=== PATIENT | female | born 1970 | race Caucasian/White ===

== ENCOUNTER 2023-11-14 07:23 | Emergency (ER) | payer MEDICAID ==
[~2023-11-14] VITALS: Ht 162.6 cm; Wt 55.9 kg
[2023-11-14] MEDS: ondansetron 4mg rapidly disintigrating tab PO ONE (08:42)
[2023-11-14] MEDS: oxyCODONE/APAP 10/325mg tablet PO ONE (08:43)
[2023-11-14 09:00] LABS: BILIRUBIN,URINE NEGATIVE (Neg); CLARITY,URINE CLOUDY (Clear); COLOR,URINE YELLOW (Yellow); GLUCOSE, URINE >=1000 mg/dl (Neg); KETONES,URINE NEGATIVE (Neg); LEUKOCYTE ESTERASE ,URINE NEGATIVE (Neg); NITRITES, URINE NEGATIVE (Neg); OCCULT BLOOD,URINE TRACE-INTACT (Neg); PROTEIN,URINE NEGATIVE (Neg); UA COLLECTION TYPE CLN CATCH MIDSTREAM; UROBILINOGEN,URINE 0.2 E.U/dL (0.2-1.0)
[2023-11-14 09:04] LABS: BACTERIA,URINE FEW /HPF (Neg); MUCUS STRANDS NONE SEEN /LPF (Neg); RBC,URINE 0-2 /HPF (0-2); SQUAMOUS EPITHELIAL CELL,UR MANY /LPF (FEW); TRANSITIONAL EPI CELLS,URINE FEW /HPF; WBC,URINE 0-4 /HPF (0-4); YEAST FEW /HPF (NEGATIVE)
[2023-11-14 09:14] LABS: BASOPHILS % (AUTO) 0.4 % (0-1); EOSINOPHILS % (AUTO) 0.4 % (0-6); HEMATOCRIT 34.4 % (35.0-45.0); HEMOGLOBIN 11.5 g/dl (12.0-16.0); LYMPHOCYTES # (AUTO) 0.9 X10'3 (1.1-4.8); LYMPHOCYTES % (AUTO) 8.7 % (21-51); MEAN CORPUSCULAR HEMOGLOBIN 29.8 PG (27.0-31.0); MEAN CORPUSCULAR HGB CONC 33.3 g/dL (33.0-36.5); MEAN CORPUSCULAR VOLUME 89.4 FL (78-98); MEAN PLATELET VOLUME 7.2 FL (7.4-10.4); MONOCYTES # (AUTO) 0.4 X10'3 (0-0.9); MONOCYTES % (AUTO) 4.4 % (2-12); NEUTROPHILS # (AUTO) 8.8 X10'3 (1.8-7.7); NEUTROPHILS % (AUTO) 86.1 % (42-75); PLATELET COUNT 273 X10'3 (140-440); RED BLOOD COUNT 3.85 X10'6 (4.20-5.60); RED CELL DISTRIBUTION WIDTH 13.3 % (11.5-14.5); WHITE BLOOD COUNT 10.2 X10'3 (4.5-11.0)
[2023-11-14 09:27] LABS: ALANINE AMINOTRANSFERASE 43 U/L (12-78); ALBUMIN 2.1 G/DL (3.4-5.0); ALBUMIN/GLOBULIN RATIO 0.5 (1.1-1.5); ALKALINE PHOSPHATASE 342 IU/L (46-116); ANION GAP 6 (8-16); ASPARTATE AMINO TRANSFERASE 23 U/L (10-37); BILIRUBIN,TOTAL 0.5 MG/DL (0.1-1.0); BLOOD UREA NITROGEN 18 MG/DL (7-18); CALCIUM 8.1 MG/DL (8.5-10.1); CHLORIDE 95 MMOL/L (99-107); CREATININE 0.82 MG/DL (0.40-0.90); POTASSIUM 3.7 MMOL/L (3.5-5.1); SODIUM 130 MMOL/L (135-145); TOTAL CARBON DIOXIDE 29.2 MMOL/L (24-32); TOTAL PROTEIN 6.1 G/DL (6.4-8.2); eCRCL 67 ML/MIN; eGFR 72 ML/MIN
[2023-11-14 09:33] LABS: GLUCOSE 463 MG/DL (70-104)
[2023-11-14] MEDS ORDERED: potassium Cl 40MEQ/1/2NS 520ml 520 ML IV PRN ×2 (09:45→12:50)
[2023-11-14] MEDS ORDERED: sodium phosphate inj. 15 MMOL in dextrose 5%-water 250 ML IV PRN (09:45)
[2023-11-14] MEDS ORDERED: Neutra Phos packet PO PRN (09:45)
[2023-11-14] MEDS ORDERED: sodium bicarbonate (8.4%) inj. 100 MEQ in dextrose 5% water 500ml 500 ML IV PRN (09:45)
[2023-11-14] MEDS ORDERED: potassium CL 20mEq in D5-1/2NS 1,000 ML IV PRN (09:45)
[2023-11-14] MEDS: Insulin Reg/NS 100units/100mL 100 ML IV SCH (09:45)
[2023-11-14] MEDS ORDERED: potassium Cl 20 mEq SR tablet PO PRN ×4 (09:45→12:50)
[2023-11-14] MEDS ORDERED: sodium bicarbonate (8.4%) inj. 50 MEQ in dextrose 5% water 500ml 250 ML IV PRN (09:45)
[2023-11-14] MEDS ORDERED: dextrose 50%-water 50ml dispensing syringe IV PRN (09:45)
[2023-11-14] MEDS ORDERED: sodium phosphate inj. 30 MMOL in dextrose 5%-water 250 ML IV PRN (09:45)
[2023-11-14] MEDS: normal saline 1000ml 1,000 ML IV SCH ×2 (09:59→12:05)
[2023-11-14] MEDS: CefTRIAXone 2gm/D5W 50ml BAG 50 ML IV ONE (10:20)
[2023-11-14] MEDS: insulin regular, human U-100 3ml vial - multi-dose IV PRN (10:24)
[2023-11-14] MEDS: HYDROmorphone 1 mg/ml syringe IV ONE ×2 (10:38→18:16)
[2023-11-14 10:43] LABS: ABG BASE EXCESS 2.8 mmol/L (-2.0-3.0); ABG HCO3 25.2 mmol/L (21.0-28.0); ABG PCO2 (T) 32.5 mmHg (32.0-45.0); ABG PH (T) 7.508 (7.350-7.450); ABG PO2 (T) 98.6 mmHg (83.0-108.0); ALLEN'S TEST POSITIVE; MODE ROOM AIR
[2023-11-14] MEDS ORDERED: iohexol 300mg/ml 100ml inj. ONE (10:45)
[2023-11-14 10:47] LABS: PHOSPHORUS 2.9 MG/DL (2.3-4.5)
[2023-11-14] MEDS: normal saline 1000ml 1,000 ML IV ONE ×2 (12:05→20:55)
[2023-11-14] MEDS: clindamycin 600mg/D5W 50ml 50 ML IV ONE (12:05)
[2023-11-14] MEDS ORDERED: acetaminophen 325mg tablet PO PRN (12:50)
[2023-11-14] MEDS ORDERED: HYDROmorphone/PF 0.2 MG/ML SYRINGE IV PRN (12:50)
[2023-11-14] MEDS ORDERED: ondansetron/PF 4mg/2ml inj IV PRN (12:50)
[2023-11-14] MEDS ORDERED: magnesium sulf-water 2g/50mL 50 ML IV PRN (12:50)
[2023-11-14] MEDS ORDERED: mag hydrox/Alum hydrox/simeth 30ml oral suspension PO PRN (12:50)
[2023-11-14] MEDS ORDERED: magnesium hydroxide 30ml (MOM) UD suspension PO PRN (12:50)
[2023-11-14] MEDS ORDERED: magnesium Cl slow-release 64mg tablet PO PRN (12:50)
[2023-11-14] MEDS ORDERED: magnesium sulf-water 4G/100mL 100 ML IV PRN (12:50)
[2023-11-14] MEDS ORDERED: morphine 2 MG/ML inj. syringe IV PRN ×2 (12:50)
[2023-11-14] MEDS ORDERED: LOSA-415 PO (14:06)
[2023-11-14] MEDS ORDERED: GABA-530 PO ×2 (14:06)
[2023-11-14] MEDS ORDERED: METO-395 PO (14:06)
[2023-11-14] MEDS ORDERED: BUPR-344 PO (14:06)
[2023-11-14] MEDS ORDERED: CLOP75TA34 PO (14:06)
[2023-11-14] MEDS ORDERED: FURO40TA4 PO (14:06)
[2023-11-14] MEDS ORDERED: SPIR25TA5 PO (14:06)
[2023-11-14] MEDS ORDERED: ASPI-611 PO (14:06)
[2023-11-14] MEDS ORDERED: CHOL100024 PO (14:06)
[2023-11-14] MEDS: vancomycin/NS 1 GM ADD-VANTAGE 250 ML IV SCH (15:08)
[2023-11-14] MEDS ORDERED: metroNIDAZOLE-Flagyl 500mg/NS 100 ML IV SCH (16:00)
[2023-11-14 17:37] LABS: URINE AMPHETAMINE SCREEN POSITIVE (Neg); URINE BARBITUATE SCREEN NEGATIVE (Neg); URINE BENZODIAZEPINES SCREEN NEGATIVE (Neg); URINE CANNABINOID SCREEN NEGATIVE (Neg); URINE COCAINE SCREEN NEGATIVE (Neg); URINE METHADONE SCREEN NEGATIVE (Neg); URINE OPIATE SCREEN NEGATIVE (Neg); URINE PHENCYCLIDINE SCREEN NEGATIVE (Neg)
[2023-11-14] MEDS ORDERED: enoxaparin 40mg/0.4ml syringe SQ SCH (20:00)
[2023-11-14] MEDS: K and/or MAG REPLACEMENT MC SCH ×2 (20:00)
[2023-11-14] MEDS ORDERED: docusate sod 100mg capsule PO SCH (20:00)
[2023-11-14] MEDS: HYDROmorphone 1 mg/ml syringe IV PRN (20:54)
[2023-11-14] MEDS: insulin regular, human 10 units/0.1 ml syringe SQ STA (21:01)
[2023-11-14 21:41] LABS: BASOPHILS % (AUTO) 0.2 % (0-1); EOSINOPHILS # (AUTO) 0.1 X10'3 (0-0.9); EOSINOPHILS % (AUTO) 0.5 % (0-6); HEMATOCRIT 31.1 % (35.0-45.0); HEMOGLOBIN 10.3 g/dl (12.0-16.0); LYMPHOCYTES # (AUTO) 0.9 X10'3 (1.1-4.8); LYMPHOCYTES % (AUTO) 7.3 % (21-51); MEAN CORPUSCULAR HGB CONC 33.1 g/dL (33.0-36.5); MEAN CORPUSCULAR VOLUME 90.7 FL (78-98); MEAN PLATELET VOLUME 6.9 FL (7.4-10.4); MONOCYTES # (AUTO) 0.4 X10'3 (0-0.9); MONOCYTES % (AUTO) 3.3 % (2-12); NEUTROPHILS # (AUTO) 10.7 X10'3 (1.8-7.7); NEUTROPHILS % (AUTO) 88.7 % (42-75); PLATELET COUNT 280 X10'3 (140-440); RED BLOOD COUNT 3.43 X10'6 (4.20-5.60); RED CELL DISTRIBUTION WIDTH 13.8 % (11.5-14.5); WHITE BLOOD COUNT 12.1 X10'3 (4.5-11.0)
[2023-11-14 21:48] LABS: ALBUMIN 1.8 G/DL (3.4-5.0); ANION GAP 5 (8-16); BLOOD UREA NITROGEN 9 MG/DL (7-18); BUN/CREATININE RATIO 15.3 (10.0-20.0); CALCIUM 7.5 MG/DL (8.5-10.1); CHLORIDE 106 MMOL/L (99-107); CREATININE 0.59 MG/DL (0.40-0.90); GLUCOSE 279 MG/DL (70-104); SODIUM 136 MMOL/L (135-145); TOTAL CARBON DIOXIDE 24.7 MMOL/L (24-32); eCRCL 93 ML/MIN; eGFR > 90 ML/MIN
[2023-11-14 23:22] LABS: PRO BRAIN NATRIURETIC PEPTIDE 4859 PG/ML (0-125)
[2023-11-15] MEDS: nicotine 7mg patch - 24hr TD STA (01:40)
[2023-11-15] MEDS: QUEtiapine 25mg tablet PO SCH (02:46)
[2023-11-15] MEDS: diphenhydrAMINE 50 mg/ml inj IV STA (03:29)
[2023-11-15 03:36] VITALS: TEMP 98.2
[2023-11-15] MEDS ORDERED: CefTRIAXone 2gm/D5W 50ml BAG 50 ML IV SCH (08:00)
[2023-11-15] MEDS ORDERED: dextrose 50%-water 50ml dispensing syringe IV PRN ×2 (12:20)
[2023-11-15] MEDS ORDERED: glucagon, human recombinant 1mg kit SUBCUT PRN (12:20)
[2023-11-15] MEDS ORDERED: DEXTROSE 15 GM of carb/4 tabs (each vial/BOTTLE has 4 tablets) PO PRN ×2 (12:20)
[2023-11-15 13:24] LABS: CHLAMYDIA TRACHOMATIS, NAA Negative (Negative)
[2023-11-15 13:25] LABS: HEMOGLOBIN A1C 11.5 % (4.5-6.2)
[2023-11-15] MEDS ORDERED: CLINDAMYCIN 600mg IN NS 50ML 50 ML IV SCH (14:00)
[2023-11-15] MEDS: INSULIN LISPRO 100 UNIT/ML INSULN.PEN MULTI-DOSE SQ SCH (17:20)
[2023-11-15 17:23] VITALS: BP 130/70; PULSE 96; O2SAT 95
[2023-11-15] MEDS: CefTRIAXone 2gm/D5W 50ml BAG 50 ML IV ONE (18:46)
[2023-11-15] MEDS: clindamycin 600mg/D5W 50ml 50 ML IV SCH (20:26)
[2023-11-15 20:57] VITALS: RESP 22
[2023-11-16] MEDS ORDERED: VANCOMYCIN LEVEL IV ONE (01:30)
== END 2023-11-16 02:19 | disposition short-term general hospital (02) ==
LOC: ER 07:24 → UNDOADMIN 12:58 → ED HOLD 12:58 → UNDODISIN 11-16 01:00
DX: N76.2 Acute vulvitis (principal); F17.200 Nicotine dependence, unspecified, uncomplicated; Z88.8 Allergy status to other drugs, medicaments and biological substances; Z79.82 Long term (current) use of aspirin; Z79.899 Other long term (current) drug therapy
CPT/HCPCS: 36415; 36600; 71045; 74177; 80048; 80053; 80305; 81001; 82803; 82948; 83036; 83605; 83880; 84100; 84145; 85025; 87040; 87088; 87491; 87591; 93005; 93306; 96365; 96366; 96367; 96372; 96375; 96376; 99285; J0696; J1170; J1200; J1815; J3370; J3490; J7030; J7042; Q9967; A6258; G0378

== ENCOUNTER 2023-12-03 12:57 | Emergency (ER) | payer MEDICAID ==
[~2023-12-03] VITALS: Ht 165.1 cm; Wt 55.9 kg
[~2023-12-03 12:57] MED LIST: ASPI-611 PO; BUPR-344 PO; CHOL100024 PO; CLOP75TA34 PO; FURO40TA4 PO; GABA-530 PO; LOSA-415 PO; METO-395 PO; SPIR25TA5 PO
[2023-12-03 14:34] LABS: BASOPHILS # (AUTO) 0.1 X10'3 (0-0.2); BASOPHILS % (AUTO) 0.9 % (0-1); EOSINOPHILS # (AUTO) 0.2 X10'3 (0-0.9); EOSINOPHILS % (AUTO) 3.4 % (0-6); HEMATOCRIT 32.5 % (35.0-45.0); LYMPHOCYTES # (AUTO) 1.6 X10'3 (1.1-4.8); LYMPHOCYTES % (AUTO) 25.2 % (21-51); MEAN CORPUSCULAR HEMOGLOBIN 30.9 PG (27.0-31.0); MEAN CORPUSCULAR HGB CONC 33.9 g/dL (33.0-36.5); MEAN CORPUSCULAR VOLUME 91.2 FL (78-98); MEAN PLATELET VOLUME 7.1 FL (7.4-10.4); MONOCYTES # (AUTO) 0.7 X10'3 (0-0.9); MONOCYTES % (AUTO) 10.5 % (2-12); NEUTROPHILS # (AUTO) 3.7 X10'3 (1.8-7.7); PLATELET COUNT 338 X10'3 (140-440); RED BLOOD COUNT 3.56 X10'6 (4.20-5.60); RED CELL DISTRIBUTION WIDTH 14.7 % (11.5-14.5); WHITE BLOOD COUNT 6.2 X10'3 (4.5-11.0)
[2023-12-03 14:43] LABS: ALANINE AMINOTRANSFERASE 22 U/L (12-78); ALBUMIN 2.9 G/DL (3.4-5.0); ALBUMIN/GLOBULIN RATIO 0.7 (1.1-1.5); ALKALINE PHOSPHATASE 157 IU/L (46-116); ANION GAP 12 (8-16); ASPARTATE AMINO TRANSFERASE 16 U/L (10-37); BILIRUBIN,TOTAL 0.2 MG/DL (0.1-1.0); BLOOD UREA NITROGEN 39 MG/DL (7-18); BUN/CREATININE RATIO 29.8 (10.0-20.0); CALCIUM 9.2 MG/DL (8.5-10.1); CHLORIDE 108 MMOL/L (99-107); CREATININE 1.31 MG/DL (0.40-0.90); GLUCOSE 115 MG/DL (70-104); LIPASE 30 U/L (16-77); POTASSIUM 4.8 MMOL/L (3.5-5.1); SODIUM 139 MMOL/L (135-145); TOTAL CARBON DIOXIDE 19.1 MMOL/L (24-32); TOTAL PROTEIN 6.9 G/DL (6.4-8.2); eGFR 42 ML/MIN
[2023-12-03] MEDS ORDERED: iohexol 300mg/ml 100ml inj. ONE (14:50)
[2023-12-03] MEDS: normal saline 1000ml 1,000 ML IV ONE ×2 (16:25→17:20)
[2023-12-03] MEDS: ondansetron/PF 4mg/2ml inj IV ONE (16:32)
[2023-12-03] MEDS: HYDROmorphone 1 mg/ml syringe IV ONE (16:35)
[2023-12-03 16:38] LABS: BILIRUBIN,URINE NEGATIVE (Neg); CLARITY,URINE CLEAR (Clear); COLOR,URINE YELLOW (Yellow); GLUCOSE, URINE 250 mg/dl (Neg); KETONES,URINE NEGATIVE (Neg); LEUKOCYTE ESTERASE ,URINE NEGATIVE (Neg); NITRITES, URINE NEGATIVE (Neg); OCCULT BLOOD,URINE NEGATIVE (Neg); PROTEIN,URINE NEGATIVE (Neg); UROBILINOGEN,URINE 0.2 E.U/dL (0.2-1.0)
[2023-12-03 16:41] LABS: UA COLLECTION TYPE CLN CATCH MIDSTREAM
[2023-12-03 18:47] VITALS: BP 128/70; PULSE 87; RESP 15; TEMP 98.4; O2SAT 98
== END 2023-12-03 18:59 ==
LOC: ER 12:58
DX: N76.2 Acute vulvitis (principal); Z88.8 Allergy status to other drugs, medicaments and biological substances; Z79.82 Long term (current) use of aspirin; Z79.899 Other long term (current) drug therapy
CPT/HCPCS: 36415; 74177; 80053; 81003; 83605; 83690; 85025; 93005; 96361; 96374; 96375; 99285; J1170; J2405; J7030; Q9967

== ENCOUNTER 2023-12-31 15:35 | Emergency (ER) | payer MEDICAID ==
[~2023-12-31] VITALS: Ht 162.6 cm; Wt 61.8 kg
[2023-12-31 16:13] LABS: BASOPHILS # (AUTO) 0.1 X10'3 (0-0.2); BASOPHILS % (AUTO) 1.1 % (0-1); EOSINOPHILS # (AUTO) 0.2 X10'3 (0-0.9); EOSINOPHILS % (AUTO) 4.2 % (0-6); HEMATOCRIT 33.3 % (35.0-45.0); HEMOGLOBIN 11.3 g/dl (12.0-16.0); LYMPHOCYTES # (AUTO) 1.5 X10'3 (1.1-4.8); LYMPHOCYTES % (AUTO) 24.5 % (21-51); MEAN CORPUSCULAR HEMOGLOBIN 30.5 PG (27.0-31.0); MEAN CORPUSCULAR HGB CONC 33.9 g/dL (33.0-36.5); MEAN CORPUSCULAR VOLUME 89.9 FL (78-98); MEAN PLATELET VOLUME 7.3 FL (7.4-10.4); MONOCYTES # (AUTO) 0.5 X10'3 (0-0.9); MONOCYTES % (AUTO) 9.1 % (2-12); NEUTROPHILS # (AUTO) 3.6 X10'3 (1.8-7.7); NEUTROPHILS % (AUTO) 61.1 % (42-75); PLATELET COUNT 274 X10'3 (140-440); RED CELL DISTRIBUTION WIDTH 14.3 % (11.5-14.5)
[2023-12-31 16:25] LABS: ANION GAP 8 (8-16); BLOOD UREA NITROGEN 19 MG/DL (7-18); BUN/CREATININE RATIO 24.4 (10.0-20.0); CHLORIDE 102 MMOL/L (99-107); CREATININE 0.78 MG/DL (0.40-0.90); GLUCOSE 180 MG/DL (70-104); SODIUM 136 MMOL/L (135-145); TOTAL CARBON DIOXIDE 25.7 MMOL/L (24-32)
[2023-12-31 16:26] LABS: ALANINE AMINOTRANSFERASE 20 U/L (12-78); ALBUMIN/GLOBULIN RATIO 0.7 (1.1-1.5); ALKALINE PHOSPHATASE 124 IU/L (46-116); ASPARTATE AMINO TRANSFERASE 19 U/L (10-37); BILIRUBIN,TOTAL 0.5 MG/DL (0.1-1.0); CALCIUM 9.4 MG/DL (8.5-10.1); LIPASE 13 U/L (16-77); TOTAL PROTEIN 7.1 G/DL (6.4-8.2); eCRCL 70 ML/MIN; eGFR 77 ML/MIN
[2023-12-31 16:35] LABS: POTASSIUM 4.3 MMOL/L (3.5-5.1)
[2023-12-31] MEDS ORDERED: morphine 4 MG/ML inj SYRINge IV ONE (17:55)
[2023-12-31] MEDS ORDERED: iohexol 300mg/ml 100ml inj. ONE (18:07)
[2023-12-31 18:11] LABS: BILIRUBIN,URINE NEGATIVE (Neg); CLARITY,URINE CLEAR (Clear); COLOR,URINE YELLOW (Yellow); GLUCOSE, URINE NEGATIVE (Neg); KETONES,URINE NEGATIVE (Neg); LEUKOCYTE ESTERASE ,URINE NEGATIVE (Neg); NITRITES, URINE NEGATIVE (Neg); OCCULT BLOOD,URINE NEGATIVE (Neg); PROTEIN,URINE NEGATIVE (Neg); UROBILINOGEN,URINE 0.2 E.U/dL (0.2-1.0)
[2023-12-31 18:12] LABS: URINE HCG NEGATIVE (NEG)
[2023-12-31] MEDS: HYDROmorphone 1 mg/ml syringe IV STA (18:15)
[2023-12-31] MEDS: ketorolac trometh 15mg/ml vial 15 MG/ML ML IV STA (18:15)
[2023-12-31 18:20] LABS: UA COLLECTION TYPE CLN CATCH MIDSTREAM
[2023-12-31 20:28] VITALS: BP 146/77; PULSE 86; RESP 16; TEMP 98.2; O2SAT 96
== END 2023-12-31 20:33 | disposition home or self-care (01) ==
LOC: ER 15:35
DX: R10.13 Epigastric pain (principal); Z88.8 Allergy status to other drugs, medicaments and biological substances; Z79.899 Other long term (current) drug therapy; Z79.1 Long term (current) use of non-steroidal anti-inflammatories (NSAID)
CPT/HCPCS: 36415; 74177; 80053; 81003; 81025; 83605; 83690; 85025; 96374; 96375; 99285; J1171; J1885; Q9967

== ENCOUNTER 2024-01-08 19:52 | Emergency (ER) | payer MEDICAID ==
[~2024-01-08] VITALS: Ht 165.1 cm; Wt 72.7 kg
[2024-01-08 19:59] VITALS: TEMP 99.1
[2024-01-08 20:38] LABS: BASOPHILS % (AUTO) 0.4 % (0-1); EOSINOPHILS # (AUTO) 0.2 X10'3 (0-0.9); EOSINOPHILS % (AUTO) 1.9 % (0-6); HEMATOCRIT 37.5 % (35.0-45.0); HEMOGLOBIN 12.8 g/dl (12.0-16.0); LYMPHOCYTES # (AUTO) 1.7 X10'3 (1.1-4.8); MEAN CORPUSCULAR HEMOGLOBIN 30.8 PG (27.0-31.0); MEAN CORPUSCULAR HGB CONC 34.2 g/dL (33.0-36.5); MEAN PLATELET VOLUME 7.6 FL (7.4-10.4); MONOCYTES # (AUTO) 0.6 X10'3 (0-0.9); MONOCYTES % (AUTO) 6.4 % (2-12); NEUTROPHILS # (AUTO) 7.2 X10'3 (1.8-7.7); NEUTROPHILS % (AUTO) 74.3 % (42-75); PLATELET COUNT 258 X10'3 (140-440); RED BLOOD COUNT 4.17 X10'6 (4.20-5.60); RED CELL DISTRIBUTION WIDTH 13.6 % (11.5-14.5); WHITE BLOOD COUNT 9.7 X10'3 (4.5-11.0)
[2024-01-08 20:50] LABS: ALANINE AMINOTRANSFERASE 28 U/L (12-78); ALBUMIN 3.7 G/DL (3.4-5.0); ALBUMIN/GLOBULIN RATIO 0.8 (1.1-1.5); ALKALINE PHOSPHATASE 127 IU/L (46-116); ANION GAP 7 (8-16); ASPARTATE AMINO TRANSFERASE 18 U/L (10-37); BILIRUBIN,TOTAL 0.7 MG/DL (0.1-1.0); BLOOD UREA NITROGEN 26 MG/DL (7-18); BUN/CREATININE RATIO 22.4 (10.0-20.0); CALCIUM 9.9 MG/DL (8.5-10.1); CHLORIDE 99 MMOL/L (99-107); CREATININE 1.16 MG/DL (0.40-0.90); GLUCOSE 149 MG/DL (70-104); LIPASE 13 U/L (16-77); POTASSIUM 4.2 MMOL/L (3.5-5.1); SODIUM 135 MMOL/L (135-145); TOTAL CARBON DIOXIDE 29.1 MMOL/L (24-32); TOTAL PROTEIN 8.1 G/DL (6.4-8.2); eCRCL 49 ML/MIN; eGFR 49 ML/MIN
[2024-01-08] MEDS ORDERED: DOCU-148 PO (22:04)
[2024-01-08] MEDS ORDERED: BISA10SU62 RC (22:04)
[2024-01-08 22:22] VITALS: BP 133/74; PULSE 83; RESP 14; O2SAT 98
== END 2024-01-08 22:29 ==
LOC: ER 19:52
DX: K59.09 Other constipation (principal); R10.84 Generalized abdominal pain; Z88.8 Allergy status to other drugs, medicaments and biological substances; Z79.82 Long term (current) use of aspirin; Z79.899 Other long term (current) drug therapy
CPT/HCPCS: 36415; 74022; 80053; 83690; 85025; 99284